=== PATIENT | female | born 1960 | race African-American/Black ===

== ENCOUNTER 2017-06-30 10:46 | Outpatient (CLI) | payer OTHER ==
[2017-06-30 12:28] LABS: Anion Gap 14 mmol/L (10-20); BUN (Urea Nitrogen) 22 mg/dL (9.8-20.1); Calc. Creatinine Clearance 0 mL/min (70-130); Calcium 9.6 mg/dL (7.8-10.44); Carbon Dioxide 28 mmol/L (22-29); Chloride 101 mmol/L (98-107); Estimated GFR-MDRD 58; Glucose 417 mg/dL (70-105); Potassium 4.8 mmol/L (3.5-5.1); Sodium 138 mmol/L (136-145)
--- NOTE | 2017-06-30 20:35 | EKG ---
Test Reason : Blood Pressure : / mmHG Vent. Rate : 073 BPM Atrial Rate : 073 BPM P-R Int : 158 ms QRS Dur : 102 ms QT Int : 404 ms P-R-T Axes : 067 059 055 degrees QTc Int : 445 ms Normal sinus rhythm Nonspecific T wave abnormality Abnormal ECG When compared with ECG of 27-NOV-2010 06:57, Nonspecific T wave abnormality now evident in Lateral leads Confirmed by TONY FLANAGAN, SSarahi ([id number]) on 06/30/2017 8:35:02 PM Referred By: ADRIANA Confirmed By:DR. Arben JIMENEZ MD
== END 2017-06-30 10:47 | disposition home or self-care (01) ==
LOC: LABBT 10:46
PROVIDERS: ATTEND Neurological Surgery
DX: Z01.818 Encounter for other preprocedural examination (principal); M47.12 Other spondylosis with myelopathy, cervical region
CPT/HCPCS: 80048; 93005; 93010

== ENCOUNTER 2017-07-02 06:17 | Day surgery (SDC) | payer OTHER ==
--- NOTE | 2017-06-29 22:23 | HP ---
HISTORY OF PRESENT ILLNESS: Ms. Tinoco is known to our clinic for prior 2 level ACDF. 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 This is with MRI on disk provided that reveals severe multilevel cervical and uppe r thoracic stenosis spanning from C6-T1. This is likely indicated in the cause of her symptoms. She is very concerned about how she feels and the possible implications of bleeding on treating this and I certainly tend to agree. PAST MEDICAL HISTORY: Significant for diabetes, hypothyroidism, and hypertension. MEDICATIONS: Levemir, metformin, Synthroid, hydrochlorothiazide, diclofenac, and tramadol. ALLERGIES: CONNER INHIBITORS. PAST SURGICAL HISTORY: Tubal ligation and 2 level ACDF. ALLERGIES: CONNER INHIBITORS. PHYSICAL EXAMINATION: GENERAL: The patient is alert and oriented x3. NEUROLOGIC: Gait is somewhat unsteady and mildly antalgic. EXTREMITIES: Upper and lower extremity motor exam is normal. Reflexes are equal and present bilater ally at the biceps and patella. ASSESSMENT: Cervical myelopathy. PLAN: Dr. Baca met with the patient, reviewed imaging and advocated for a posterior cervical decomp ression from C6-T1. He explained to the patient the risks, benefits, and alternatives to the procedu re. The patient expressed understanding and would like to move forward with surgery as discussed. I do believe the patient is mentally competent and capable of making medical decisions for herself and we will move forward with surgery as planned. Max Arana PA-C dictating for Larry Baca M.D.
[2017-06-30 11:01] VITALS: BMI 40.3
[2017-07-02] MEDS ORDERED: CEFAZOLIN/Water 2 GM/20 ML SYRINGE ONE ×2 (07:16→13:08)
[2017-07-02] MEDS ORDERED: Thrombin 5000 UNITS/5 ML VIAL ONE (08:39)
[2017-07-02] MEDS ORDERED: Bupivacaine HCl 0.5%/Epinephrine 1:200,000/PF 30 ml Vial ONE (08:39)
[2017-07-02] MEDS ORDERED: Fentanyl 100 MCG/2 ML VIAL ONE (08:49)
--- NOTE | 2017-07-02 10:41 | OP ---
DATE OF PROCEDURE: 07/02/2017 SURGEON: Larry Baca M.D. CHAIRMAN CEO: None. INDICATION: Prevent neurologic decline. DIAGNOSIS: Cervical spondylitic myelopathy. PROCEDURE: C6-T1 posterior cervical laminectomy decompression. ANESTHESIA: General. TECHNIQUE: The patient was brought into the operating room and placed under general anesthesia. She was flipped from a supine to a prone position on the operating room table. A linear incision was pl anned spanning C6-T1. After prepping and draping and after an appropriate pause, the incision was cr eated. The soft tissues were swept away from midline. Self-retaining retractors were placed in the wound for optimal exposure. After confirming the appropriate level with C-arm fluoroscopy a laminect hiren was performed spanning from the mid portion of C6 down to the upper mid portion of T1. The rony ectomy was completed using a high-speed cutting drill bit as well as 2, 3 and 4-mm Kerrisons. The ce ntral canal and lateral recess were then well decompressed. The wound was then irrigated. Hemostasi s was maintained throughout. The wound was then closed in anatomic layers and a pressure dressing wa s applied. There were no known procedural complications.
[2017-07-02] MEDS ORDERED: Cyclobenzaprine 10 MG TAB ONE (11:28)
[2017-07-02] MEDS ORDERED: Ketorolac Tromethamine 30 MG/ML VIAL ONE (11:55)
== END 2017-07-02 13:35 | disposition home or self-care (01) ==
LOC: SDC 06:17
PROVIDERS: ATTEND Neurological Surgery
PROC: 01N10ZZ Release Cervical Nerve, Open Approach (ICD-10-PCS; principal; 2017-07-02)
DX: M47.12 Other spondylosis with myelopathy, cervical region (principal); E11.9 Type 2 diabetes mellitus without complications; E03.9 Hypothyroidism, unspecified; I10 Essential (primary) hypertension; Z88.8 Allergy status to other drugs, medicaments and biological substances; Z79.4 Long term (current) use of insulin; Z79.899 Other long term (current) drug therapy; Z98.890 Other specified postprocedural states; Z98.1 Arthrodesis status
CPT/HCPCS: 36416; 76001; J0131; J0670; J1885; J3010

== ENCOUNTER 2018-04-13 09:45 | Emergency (ER) | payer OTHER ==
[2018-04-13] MEDS ORDERED: Ketorolac Tromethamine 60 MG/2 ML VIAL ONE (11:46)
== END 2018-04-13 13:30 | disposition home or self-care (01) ==
LOC: ERS 09:45
DX: M62.838 Other muscle spasm (principal); M54.31 Sciatica, right side; E11.9 Type 2 diabetes mellitus without complications; I10 Essential (primary) hypertension; E78.00 Pure hypercholesterolemia, unspecified; F41.9 Anxiety disorder, unspecified; F32.9 Major depressive disorder, single episode, unspecified; F17.210 Nicotine dependence, cigarettes, uncomplicated; Z79.899 Other long term (current) drug therapy; Z79.4 Long term (current) use of insulin
CPT/HCPCS: 96372; J1885